=== PATIENT | female | born 1965 | race Caucasian/White ===

== ENCOUNTER → 2020-10-21 | Outpatient (CLI) | payer OTHER ==
--- NOTE | 2020-10-22 09:03 | MM ---
Reason for exam: screening (asymptomatic). Last mammogram was performed 4 years and 11 months ago. Physical Findings: A clinical breast exam by your physician is recommended on an annual basis and results should be correlated with mammographic findings. MG 3D Screening Mammo W/Cad Bilateral CC and MLO view(s) were taken. Prior study comparison: December 01, 2015, bilateral MG screening mammo w CAD. January 01, 2013, bilateral digital screening mammo w/CAD. The breast tissue is heterogeneously dense. This may lower the sensitivity of mammography. There is no discrete abnormality. ASSESSMENT: Negative, BI-RAD 1 RECOMMENDATION: Routine screening mammogram of both breasts in 1 year.
== END | disposition home or self-care (01) ==
LOC: LABWHC1 10:00
PROVIDERS: ATTEND Family Medicine
DX: Z12.31 Encounter for screening mammogram for malignant neoplasm of breast (principal)
CPT/HCPCS: 77063; 77067

== ENCOUNTER 2021-07-23 15:40 | Emergency (ER) | payer OTHER ==
[2021-07-23 15:48] VITALS: TEMP 97.9
[2021-07-23] MEDS ORDERED: ALBUTEROL HFA INHALER INHALATION STA (16:51)
--- NOTE | 2021-07-23 17:02 | ED ---
General Adult HPI - General Chief complaint: Upper Respiratory Infection Stated complaint: covid+/wants antibodies Time Seen by Provider: 07/23/21 16:27 Source: patient, RN notes reviewed, old records reviewed Mode of arrival: ambulatory Limitations: no limitations - History of Present Illness Initial comments: Patient is a 56-year-old female with past medical history remarkable for hypertension, diabetes who presents emergency Department known Covid positive based on testing at home. Symptoms of been present for approximately one week. Has not yet received monoclonal antibody therapy. Was fully vaccinated for Covid. States she was originally seen by her PCP, however presents today due to worsening cough and congestion. One to be reevaluated. Denies fevers. Denies nausea, vomiting, diarrhea. Nurse's productive cough which has been present since Covid diagnosis. Endorses fatigue. Has no other acute complaints at this time. - Related Data Home Medications Medication Instructions Recorded Confirmed Telmisartan/Hydrochlorothiazid 1 tab PO DAILY 02/02/15 07/23/21 [Micardis Hct 80-25 mg Tablet] glipiZIDE [Glucotrol] 5 mg PO DAILY 02/02/15 07/23/21 Cholecalciferol [Vitamin D3 (25 50 mcg PO DAILY 07/23/21 07/23/21 Mcg = 1000 Iu)] Empagliflozin [Jardiance] 10 mg PO DAILY 07/23/21 07/23/21 INSULIN ASPART (NovoLOG) [NovoLOG 2 - 10 unit SQ AC-SUPPER MDD 10 07/23/21 07/23/21 (formulary)] units Insulin Detemir (Levemir) [Levemir] 40 unit SQ HS 07/23/21 07/23/21 metFORMIN HCL ER [Glucophage XR] 500 mg PO W/SUPPER 07/23/21 07/23/21 Previous Rx's Medication Instructions Recorded Albuterol Inhaler [Ventolin Hfa 1 puff INHALATION RT-QID #8 gm 07/23/21 Inhaler] Allergies Allergy/AdvReac Type Severity Reaction Status Date / Time Penicillins Allergy Rash/Hives Verified 07/23/21 18:41 Review of Systems ROS Statement: Those systems with pertinent positive or pertinent negative responses have been documented in the HPI. Review of Systems: CONST: Denies fever EYES: Denies blurry vision ENT: Endorses nasal congestion C/V: Denies Chest pain RESP: Denies shortness of breath GI: Denies abdominal pain : Denies dysuria SKIN: Denies rash. MSK: Denies joint pain. NEURO: Denies headache ROS Other: All systems not noted in ROS Statement are negative. Past Medical History Past Medical History: Diabetes Mellitus, Hyperlipidemia, Hypertension History of Any Multi-Drug Resistant Organisms: None Reported Past Surgical History: Tubal Ligation Past Psychological History: No Psychological Hx Reported Smoking Status: Never smoker Past Alcohol Use History: None Reported Past Drug Use History: None Reported General Exam - General Exam Comments Initial Comments: General: Appears in no acute distress. HEAD: Normal with no signs of head trauma. EYES: PERRLA, EOMI, conjunctiva normal, no discharge. ENT: Hearing grossly intact, normal oropharynx. RESPIRATORY: Clear breath sounds bilaterally. No wheezes, rales, or rhonchi. Not hypoxic, no increased work of breathing. C/V: Regular rate and rhythm. S1 and S2 auscultated, no edema, peripheral pulses 2+ and intact throughout ABD: Abd is soft, nontender, nondistended EXT: Normal range of motion, no obvious deformity SKIN: No rashes or lesions observed on exposed skin. NEURO: Alert and oriented 4. Limitations: no limitations Course Vital Signs 07/23/21 15:45 Temperature 97.9 F Pulse Rate 101 H Respiratory 20 Rate Blood Pressure 177/109 O2 Sat by Pulse 94 L Oximetry Medical Decision Making - Medical Decision Making Based on the patient's presentation and physical exam, I believe she is Covid 19 positive. She is not yet received monoclonal antibody therapy and she does meet criteria. She did consent therapy. We will obtain a chest x-ray. She'll be given an albuterol inhaler. I do not believe that she'll present laboratory studies or imaging at this time. Patient is not hypoxic on room air, his saturations while I'm talking to her range from 95% to 98%. She is no increased work of breathing. She was in agreement this plan. She was prescribed steroids by her outpatient PCP. We did a repeat Covid testing here as we do not have a documented positive. Covid testing is positive. Chest x-ray reveals no acute cardiopulmonary process. I discussed the findings with the patient. She consented to monoclonal antibody therapy. We discussed quarantine. She is otherwise taking steroids as well as inhaler at home. Patient tolerated therapy well. She'll be discharged home at this time. I will provide the patient with a prescription for albuterol. I instructed the patient to follow up with their PCP in the next 3 days. I explained that the patient should return to the emergency department if they experience any worsening symptoms. Strict return precautions were discussed with the patient. The patient expressed understanding of these instructions. I answered all questions that the patient had. The patient was discharged home in fair condition with their prescriptions and follow up information. - Lab Data Lab Results 07/23/21 Range/Units 16:58 Coronavirus (PCR) Detected A (Not Detectd) Disposition Clinical Impression: COVID-19 virus infection Disposition: HOME SELF-CARE Condition: Fair Instructions (If sedation given, give patient instructions): COVID-19 (Coronavirus Disease 2019) (ED) Prescriptions: Albuterol Inhaler [Ventolin Hfa Inhaler] 1 puff INHALATION RT-QID #8 gm Is patient prescribed a controlled substance at d/c from ED?: No Referrals: Kenny Ruano MD [Primary Care Provider] - 1-2 days Time of Disposition: 18:20
--- NOTE | 2021-07-23 17:59 | XR ---
EXAMINATION TYPE: XR chest 1V portable DATE OF EXAM: 07/23/2021 5:10 PM COMPARISON:Chest radiographs from 04/29/2014 TECHNIQUE: XR chest 1V portable Frontal view of the chest. CLINICAL INDICATION:Female, 56 years old with history of cough; FINDINGS: Lungs/Pleura: There is no evidence of pleural effusion, focal consolidation, or pneumothorax. Pulmonary vascularity: Unremarkable. Heart/mediastinum: Cardiomediastinal silhouette is unremarkable. Musculoskeletal: No acute osseous pathology. IMPRESSION: No acute cardiopulmonary disease/process.
[2021-07-23] MEDS ORDERED: BEBTELOVIMAB (EUA) 175 MG/2 ML VIAL IV ONE (18:15)
[2021-07-23 20:00] VITALS: BP 131/89; PULSE 91; RESP 18
== END 2021-07-23 19:40 | disposition home or self-care (01) ==
LOC: EC 15:40
DX: U07.1 COVID-19 (principal); E11.9 Type 2 diabetes mellitus without complications; I10 Essential (primary) hypertension; Z88.0 Allergy status to penicillin
CPT/HCPCS: 94640; 87635; 71045; 99284; Q0222

== ENCOUNTER → 2021-10-22 | Outpatient (CLI) | payer OTHER ==
--- NOTE | 2021-10-23 08:11 | MM ---
Reason for Exam: Screening (asymptomatic). Last screening mammogram was performed 12 month(s) ago. Patient History: Menarche at age 13. First Full-Term at age 21. Postmenopausal. Patient has history of breast feeding. Risk Values: Juliana 5 year model risk: 0.9%. NCI Lifetime model risk: 6.7%. Prior Study Comparison: 11/18/2011 Bilateral Screening Mammogram, [facility]. 01/01/2013 Bilateral Screening Mammogram, [facility]. 12/01/2015 Bilateral Screening Mammogram, [facility]. 10/21/2020 Bilateral Screening Mammogram, [facility]. Tissue Density: There are scattered fibroglandular densities. Findings: Analyzed By CAD. Stable well-defined small round mass towards the right axilla presumed benign lymph node as there are additional benign-appearing bilateral axillary lymph nodes are redemonstrated. There is no suspicious group of microcalcifications or new suspicious mass in either breast. Overall Assessment: Benign, BI-RAD 2 Management: Screening Mammogram of both breasts in 1 year. A clinical breast exam by your physician is recommended on an annual basis and results should be correlated with mammographic findings. Electronically signed and approved by: Eduardo Man M.D.
== END | disposition home or self-care (01) ==
LOC: RADMAMWWP 08:09
PROVIDERS: ATTEND Family Medicine
DX: Z12.31 Encounter for screening mammogram for malignant neoplasm of breast (principal)
CPT/HCPCS: 77067

== ENCOUNTER → 2022-04-07 | Outpatient (CLI) | payer OTHER ==
--- NOTE | 2022-04-07 11:00 | XR ---
EXAMINATION TYPE: XR shoulder complete RT DATE OF EXAM: 04/07/2022 8:41 AM INDICATION: Patient age:Female; 57 years old; Reason for study: PAIN; COMPARISON: None TECHNIQUE: The right shoulder was examined in AP, internally rotated and scapular Y projections. . FINDINGS: No evidence of acute osseous pathology, joint dislocation, or soft tissue swelling. The remaining por tions of the visualized chest are unremarkable. Mild osteophyte formation of the acromion and distal clavicle. IMPRESSION: 1. No acute osseous pathology. 2. Mild right AC joint osteoarthrosis.
== END | disposition home or self-care (01) ==
LOC: RADXRMAIN 08:24
PROVIDERS: ATTEND Family Medicine
DX: M19.011 Primary osteoarthritis, right shoulder (principal)

== ENCOUNTER → 2022-05-07 | Outpatient (CLI) | payer OTHER ==
[2022-05-07 16:08] LABS: ALT 22 U/L (8-44); AST 18 U/L (13-35); Albumin 4.1 g/dL (3.8-4.9); Albumin/Globulin Ratio 1.19 (1.60-3.17); Alkaline Phosphatase 88 U/L (41-126); Blood Urea Nitrogen 39.3 mg/dL (9.0-27.0); Calcium 9.8 mg/dL (8.7-10.3); Carbon Dioxide 27.4 mmol/L (20.0-27.5); Chloride 103 mmol/L (96-109); Globulin 3.4 g/dL (1.6-3.3); Glucose 126 mg/dL (70-110); LDL Cholesterol,Calculated 105.8 mg/dL (0.0-131.0); Non-African American GFR(CKD) 45.7 (60.0-200.0); Sodium 143 mmol/L (135-145); Total Protein 7.6 g/dL (6.2-8.2)
[2022-05-07 19:57] LABS: Urine Creatinine 70.1 mg/dL (28.0-217.0)
== END | disposition home or self-care (01) ==
LOC: LABWHC1 09:15
PROVIDERS: ATTEND Internal Medicine Endocrinology, Diabetes & Metabolism
DX: E11.65 Type 2 diabetes mellitus with hyperglycemia (principal)
CPT/HCPCS: 36415; 80053; 80061; 82043; 82570; 83036; 84443

== ENCOUNTER → 2022-05-07 | Outpatient (CLI) | payer OTHER ==
--- NOTE | 2022-05-09 15:02 | MR ---
EXAMINATION TYPE: MR shoulder RT wo/w con DATE OF EXAM: 05/07/2022 COMPARISON: Right shoulder x-ray April 07, 2022 HISTORY: Rt shoulder pain when raising arm over head x4 months TECHNIQUE: Multiplanar, multisequence images of the right shoulder is performed without and with 9ml mL intravenous Gadavist gadolinium contrast. FINDINGS: Rotator Cuff: Focal tearing of the supraspinatus tendon and articular surface with a few remnant fibe rs intact. Surrounding fluid is seen. Infraspinatus tendon intact. Rotator cuff muscle bulk preserved . Acromioclavicular Joint: Moderate narrowing and capsular hypertrophy. Loss of underlying fat plane on sagittal image 15 Glenohumeral Joint: Moderate sized joint effusion. No significant spurring. Labrum: The labrum appears grossly intact given limitation of non-arthrogram study. Biceps Tendon: The long head of biceps is in normal location within bicipital groove. Bone marrow signal: Heterogeneity is present. No suspicious postcontrast enhancement is seen. Other: No additional significant abnormality is appreciated. IMPRESSION: 1. Tendinosis and significant partial distal tearing of the distal supraspinatus tendon. 2. Moderate degenerative changes in the shoulder as detailed above. Moderate size effusion noted.
== END | disposition home or self-care (01) ==
LOC: RADMRIMAIN 21:15
PROVIDERS: ATTEND Family Medicine
DX: M19.011 Primary osteoarthritis, right shoulder (principal); M75.111 Incomplete rotator cuff tear or rupture of right shoulder, not specified as traumatic; M67.813 Other specified disorders of tendon, right shoulder; M25.411 Effusion, right shoulder
CPT/HCPCS: 73223; A9585

== ENCOUNTER → 2022-08-21 | Outpatient (CLI) | payer OTHER ==
[2022-08-22 07:42] LABS: ALT 19 U/L (8-44); AST 17 U/L (13-35); Albumin 4.3 g/dL (3.8-4.9); Albumin/Globulin Ratio 1.17 (1.60-3.17); Alkaline Phosphatase 81 U/L (41-126); BUN/Creat Ratio 27.48 Ratio (12.00-20.00); Calcium 10.1 mg/dL (8.7-10.3); Carbon Dioxide 24.6 mmol/L (20.0-27.5); Chloride 102 mmol/L (96-109); Chol/HDL Ratio 5.45 Ratio; Globulin 3.7 g/dL (1.6-3.3); Glucose 98 mg/dL (70-110); LDL Cholesterol,Calculated 117.3 mg/dL (0.0-131.0); Non-African American GFR(CKD) 45.7 (60.0-200.0); Sodium 141 mmol/L (135-145); Total Protein 7.9 g/dL (6.2-8.2)
[2022-08-22 09:51] LABS: Urine Creatinine 95.6 mg/dL (28.0-217.0)
== END | disposition home or self-care (01) ==
LOC: LABWHC1 09:09
PROVIDERS: ATTEND Internal Medicine Endocrinology, Diabetes & Metabolism
DX: E11.65 Type 2 diabetes mellitus with hyperglycemia (principal)
CPT/HCPCS: 36415; 80053; 80061; 82043; 82570; 83036; 84443

== ENCOUNTER → 2022-11-29 | Outpatient (CLI) | payer OTHER ==
--- NOTE | 2022-11-30 08:49 | MM ---
Reason for Exam: Screening (asymptomatic). Last mammogram was performed 1 year(s) and 1 month(s) ago. Patient History: Menarche at age 13. First Full-Term at age 21. Postmenopausal. Patient has history of breast feeding. Risk Values: Juliana 5 year model risk: 0.9%. NCI Lifetime model risk: 6.6%. Prior Study Comparison: 12/01/2015 Bilateral Screening Mammogram, [facility]. 10/21/2020 Bilateral Screening Mammogram, [facility]. 10/22/2021 Bilateral MG screening mammo w CAD, [facility]. Tissue Density: There are scattered fibroglandular densities. Findings: Analyzed By CAD. There is no suspicious group of microcalcifications or new suspicious mass in either breast. Stable small round mass in the right axilla which is presumed benign lymph node. Additional benign-appearing bilateral axillary lymph nodes redemonstrated. Overall Assessment: Benign, BI-RAD 2 Management: Screening Mammogram of both breasts in 1 year. A clinical breast exam by your physician is recommended on an annual basis and results should be correlated with mammographic findings. Note on Juliana scores and lifetime risk: 1. A Juliana score greater than 3% is considered moderate risk. If this is the case, consider specialist referral to assess eligibility for a risk reducing agent. If overall lifetime risk for the development of breast cancer is 20% or higher, the patient may qualify for future screening with alternating mammogram and breast MRI. Electronically signed and approved by: Umair Park D.O.
== END | disposition home or self-care (01) ==
LOC: RADMAMWWP 16:47
PROVIDERS: ATTEND Family Medicine
DX: Z12.31 Encounter for screening mammogram for malignant neoplasm of breast (principal); Z78.0 Asymptomatic menopausal state
CPT/HCPCS: 77063; 77067

== ENCOUNTER 2022-12-24 05:37 | Day surgery (SDC) | payer OTHER ==
[2022-12-22 13:10] VITALS: BMI 39.9
--- NOTE | 2022-12-23 07:59 | P.HPOR ---
History of Present Illness H&P Date: 12/23/22 Chief Complaint: Right shoulder pain The patient is a 57-year-old [id number] female presents with right shoulder pain for the last 9 months. She is having pain with overhead activity and at night. She notes stiffness. She's tried therapy along with an injection and medications. She is having daily pain that limits her. Review of Systems As per HPI Past Medical History Past Medical History: Diabetes Mellitus, Hyperlipidemia, Hypertension Additional Past Medical History / Comment(s): fatty liver , dr monitoring kidney function, pain right shoulder History of Any Multi-Drug Resistant Organisms: None Reported Past Surgical History: Tubal Ligation Additional Past Surgical History / Comment(s): left shoulder tears repaired (2017) Past Anesthesia/Blood Transfusion Reactions: No Reported Reaction Past Psychological History: No Psychological Hx Reported Smoking Status: Never smoker Past Alcohol Use History: None Reported Past Drug Use History: None Reported - Past Family History Mother Family Medical History: No Reported History Medications and Allergies Home Medications Medication Instructions Recorded Confirmed Type Telmisartan/Hydrochlorothiazid 1 tab PO DAILY 02/02/15 12/22/22 History [Micardis Hct 80-25 mg Tablet] metFORMIN HCL ER [Glucophage XR] 500 mg PO W/SUPPER 07/23/21 12/22/22 History Acetaminophen [Tylenol Extra 1,000 mg PO DIRECTED PRN 12/22/22 12/22/22 History Strength] Cholecalciferol [Vitamin D3 (125 125 mcg PO DAILY 12/22/22 12/22/22 History Mcg = 5000 Iu)] Empagliflozin [Jardiance] 25 mg PO DAILY 12/22/22 12/22/22 History Finerenone [Kerendia] 10 mg PO DAILY 12/22/22 12/22/22 History Glimepiride [Amaryl] 4 mg PO AC-BRKFST 12/22/22 12/22/22 History Ibuprofen [Motrin] 600 mg PO ONCE PRN 12/22/22 12/22/22 History Magnesium 250 mg PO DAILY 12/22/22 12/22/22 History Pioglitazone [Actos] 30 mg PO DAILY 12/22/22 12/22/22 History Rosuvastatin Calcium 5 mg PO DAILY 12/22/22 12/22/22 History Semaglutide [Ozempic] 2 mg SQ WEEKLY 12/22/22 12/22/22 History Allergies Allergy/AdvReac Type Severity Reaction Status Date / Time Penicillins Allergy Rash/Hives, Verified 12/22/22 12:41 all over her body (teenager) Physical Examination - Shoulder right Tenderness with palpation: anterior, bicipital groove Pain: with abduction, with forward flexion ROM: forward flexion: 120 degrees (Active and passive) ROM: external rotation: 50 degrees Crepitus with motion: Yes Strength: abduction: 5/5 Strength: external rotation: 5/5 Tests: internal impingement tests: positive, external impingment tests: positive Results The patient is a well-developed well-nourished female approximately 5 foot 2, 220 pounds of endomorphic habitus. HEENT exam is nonfocal neck supple. On examination the right shoulder, she is tender but anterior subacromial space. Moderate crepitus is noted. She has diminished active range of motion symmetric to passive motion. Bravo, Neer sign, and speed tests are positive. Her distal neurovascular exam appears intact in the right upper extremity. - Diagnostic results Shoulder MRI: image reviewed (Right shoulder MRI is reviewed and shows a small anterior supraspinatus tear along with some degenerative changes involving the glenohumeral joint.) Assessment and Plan Assessment: Right shoulder impingement/rotator cuff tear Right shoulder adhesive capsulitis Plan: I talked to the patient length regarding her condition along with treatment options. At this point she is quite symptomatic despite extensive conservative measures. After thorough discussion, she opted to proceed with surgery. We'll proceed with a right shoulder arthroscopic evaluation with manipulation under anesthesia, subacromial decompression, rotator cuff debridement versus repair. Risks and benefits are discussed at length in layman's terms. We will likely perform that as an outpatient procedure.
[2022-12-24] MEDS ORDERED: LACTATED RINGERS 1,000 ML IV SCH (05:53)
[2022-12-24] MEDS ORDERED: ONDANSETRON 4 MG/2 ML VIAL IVP ONE (05:53)
[2022-12-24] MEDS ORDERED: LIDOCAINE 1% (10MG/ML) FOR IV START INTRADERMA PRN (05:53)
[2022-12-24] MEDS ORDERED: DEXAMETHASONE SOD PHOSPHATE 4 MG/ML 1 ML VIAL IV ONE (05:53)
[2022-12-24 06:44] LABS: Glucose,Whole Blood 143 mg/dL (70-110)
[2022-12-24] MEDS ORDERED: MIDAZOLAM 2 MG/2 ML VIAL IVP ONE (06:54)
[2022-12-24] MEDS ORDERED: HYDROmorphone 0.5 MG/0.5 ML SYRINGE IVP PRN (07:00)
[2022-12-24] MEDS ORDERED: MIDAZOLAM 2 MG/2 ML VIAL IV PRN (07:00)
[2022-12-24] MEDS ORDERED: DEXAMETHASONE SOD PHOSPHATE 4 MG/ML 1 ML VIAL ONE (07:30)
[2022-12-24] MEDS ORDERED: fentaNYL (PF) 50 MCG/ML 2 ML AMP ONE (07:30)
[2022-12-24] MEDS ORDERED: ROPIVACAINE 5 MG/ML 30 ML VIAL ONE (07:30)
[2022-12-24] MEDS ORDERED: GLYCOPYRROLATE 0.2 MG/ML 2 ML VIAL ONE (07:30)
[2022-12-24] MEDS ORDERED: ROCURONIUM 10 MG/ML (5 ML VIAL) IV ONE (07:30)
[2022-12-24] MEDS ORDERED: PROPOFOL 10 MG/ML 20 ML VIAL IV ONE (07:30)
[2022-12-24] MEDS ORDERED: EPINEPHrine (PF) 1 ML in SODIUM CHLORIDE 0.9% IRRIGATIO 3,000 ML IRRIGATION ONE ×8 (07:30)
[2022-12-24] MEDS ORDERED: PHENYLEPHRINE-0.9% NACL SYG 1,000 MCG/10 ML SYRINGE ONE (07:30)
[2022-12-24] MEDS ORDERED: MIDAZOLAM 2 MG/2 ML VIAL ONE (07:30)
[2022-12-24] MEDS ORDERED: LIDOCAINE 2% INJ 20 MG/ML (2 ML VIAL) ONE (07:30)
[2022-12-24] MEDS ORDERED: SUCCINYLCHOLINE CHLORIDE 200 MG/10 ML VIAL IV ONE (07:30)
[2022-12-24] MEDS ORDERED: NEOSTIGMINE 1 MG/ML 10 ML VIAL ONE (07:30)
--- NOTE | 2022-12-24 09:06 | P.OP ---
Date of Procedure: 12/24/22 Preoperative Diagnosis: Right shoulder impingement/rotator cuff tear Right shoulder adhesive capsulitis/synovitis Postoperative Diagnosis: Same Procedure(s) Performed: Right shoulder arthroscopic subacromial decompression/manipulation under anesthesia/synovectomy/rotator cuff repair Implants: Arthrex 4.75 mm swivel lock anchor 2, 5.5 mm swivel lock anchor 2 Anesthesia: KENNAishan Surgeon: Tray Ortiz Deadener #1: Michael Cueva Estimated Blood Loss (ml): 10 Pathology: none sent Condition: stable Disposition: PACU Indications for Procedure: The patient is a 57-year-old female who presents with persistent/progressive right shoulder pain and stiffness for the past 9 months despite conservative measures. A discussion of the risks and benefits of operative intervention versus continued conservative measures was made with the patient. She opted to proceed with surgery. Operative risks to include infection, neurovascular injury, development of blood clots, possible recurrence of stiffness, possible need for subsequent procedures was discussed. Informed consent was obtained. Operative Findings: As below Description of Procedure: The patient was brought to the operating room, and after induction of general anesthesia was placed in a beachchair position. A preoperative interscalene block was placed for postoperative analgesia. I examined the right shoulder. There was significant block to passive motion. Gentle manipulation was then performed first with her arm at her side obtaining full external rotation. Moderate adhesions were encountered. I then obtained full forward elevation. Again moderate adhesions were encountered. The right upper extremity was prepped and draped in normal fashion. The bony outlines the acromion, distal clavicle, and coracoid process were outlined with a skin marker. The glenohumeral joint was inflated with 50 mL of saline utilizing a spinal needle from posterior approach. A posterior portal was made through a 5 mm skin incision 1 cm medial and inferior to the posterior lateral border time. A blunt trocar was used to easily into the joint. Diagnostic arthroscopy was performed. An anterior portal was made just lateral to the coracoid process entering the joint above the subscapularis tendon. The subscapularis tendon appeared to be intact. Anterior labrum was intact. The inferior recess was inspected. The posterior labrum was intact. The biceps tendon appear to be intact as well as the anchor. Significant synovitis involving the rotator interval was noted and was debrided with a motorized shaver. On inspection the rotator cuff, a full- thickness tear involving the anterior supraspinatus was noted. The arthroscope was placed into the subacromial space. A lateral portal was made 2 centimeters inferior to the anterior lateral border of the acromion. The rotator cuff was easily mobilized back to the greater tuberosity. The soft tissue on the undersurface of the acromion was debrided with a motorized shaver and electrocautery clearly defining the anterior medial and lateral borders as well as the distal clavicle. An anterior inferior acromioplasty was performed with a motorized fer starting anterolateral, then extending this posteriorly, then extending this medially. I converted to a flat acromion and this was verified in the posterior and lateral viewing portals. The greater tuberosity was lightly decorticating with a shaver down to a bleeding bony surface. An accessory superior lateral portal was made just off the lateral edge of the acromion for anchor placement. 2 anchors were then placed just off the articular surface with the appropriate starting awl. 4.75 mm anchors preloaded with #2 fiber tape were placed. Good purchase was obtained. These fiber tapes were then passed the rotator cuff with a scorpion suture passer. A lateral row was created crisscrossing these tapes. 5.5 mm swivel lock anchors x2 were placed laterally. Good purchase was obtained. Final arthroscopic view showed adequate compression at the footprint. The arthroscope was then removed. The portals were closed with simple 3-0 nylon sutures. A sterile dressing was applied in addition to a sling. The patient was then awoken from general anesthesia and transferred to recovery room in good condition. Blood loss was estimated at 10 mL. No complications were incurred. Sponge and needle counts were correct in the case. Michael MCKEON assisted and the major components of the case to include arm positioning, anchor placement, and rotator cuff repair.
[2022-12-24 09:13] LABS: Glucose,Whole Blood 144 mg/dL (70-110)
[2022-12-24 09:16] VITALS: TEMP 96.8
--- NOTE | 2022-12-24 13:29 | P.ANPRN ---
Procedure Note - Anesthesia - Nerve Block Performed Right Interscalene Single Time Out Performed: Yes Date of Procedure: 12/24/22 Procedure Start Time: 06:53 Procedure Stop Time: 06:57 Location of Patient: PreOp Indication: Acute Post-Operative Pain, Requested by Surgeon Sedation Type: Sedate with meaningful contact maintained Preparation: Sterile Prep Position: Supine Needle Types: Pajunk Needle Gauge: 21 Ultrasound used to visualize needle placement: Yes Ultrasound used to observe medication spread: Yes Blood Aspirated: No Pain Paresthesia on Injection Noted: No Resistance on Injection: Normal Image Stored and Saved: Yes Events: Uneventful and Well Tolerated (Ropivacaine 0.5% 20 mL plus dexamethasone 4 mg)
[2022-12-24 15:26] VITALS: BP 110/67; PULSE 81; RESP 16
== END 2022-12-24 10:59 | disposition home or self-care (01) ==
LOC: OR 05:37
PROVIDERS: ATTEND Orthopaedic Surgery
DX: M75.101 Unspecified rotator cuff tear or rupture of right shoulder, not specified as traumatic (principal); M25.811 Other specified joint disorders, right shoulder; M75.01 Adhesive capsulitis of right shoulder; I10 Essential (primary) hypertension; E78.5 Hyperlipidemia, unspecified; E11.9 Type 2 diabetes mellitus without complications; Z79.84 Long term (current) use of oral hypoglycemic drugs; Z88.0 Allergy status to penicillin; Z79.899 Other long term (current) drug therapy
CPT/HCPCS: 29827; 29826; 64415; C1713 ×2; C1894; J2250; J0330; J1100; J2710; J0690; J2405; J0171; J3010; J2795; J2704; J2001; J2371

== ENCOUNTER → 2023-01-31 | Outpatient (CLI) | payer OTHER ==
--- NOTE | 2023-01-31 09:14 | XR ---
EXAMINATION TYPE: XR knee complete RT DATE OF EXAM: 01/31/2023 9:06 AM INDICATION: Patient age:Female; 57 years old; Reason for study: R52 pain; PHH. COMPARISON: None. TECHNIQUE: The Right knee(s) was examined in Frontal, lateral and oblique projections. FINDINGS: No evidence of any acute osseous pathology, soft tissue swelling, or joint effusion is no kamini. No significant joint space narrowing. Supra and infrapatellar spurring noted. Prominent tibial t uberosity. IMPRESSION: No acute osseous pathology.
== END | disposition home or self-care (01) ==
LOC: RADXRMAIN 08:46
PROVIDERS: ATTEND Family Medicine
DX: M25.561 Pain in right knee (principal)

== ENCOUNTER → 2023-02-22 | Outpatient (CLI) | payer OTHER ==
[2023-02-22 15:47] LABS: ALT 21 U/L (8-44); AST 16 U/L (13-35); Albumin 4.1 g/dL (3.8-4.9); Albumin/Globulin Ratio 1.17 Ratio (1.60-3.17); Alkaline Phosphatase 75 U/L (41-126); BUN/Creat Ratio 34.31 Ratio (12.00-20.00); Blood Urea Nitrogen 44.6 mg/dL (9.0-27.0); Calcium 9.9 mg/dL (8.7-10.3); Carbon Dioxide 21.8 mmol/L (21.6-31.8); Chloride 109 mmol/L (96-109); Chol/HDL Ratio 5.16 Ratio; Globulin 3.5 g/dL (1.6-3.3); Glucose 145 mg/dL (70-110); LDL Cholesterol,Calculated 133.7 mg/dL (0.0-131.0); Potassium 4.4 mmol/L (3.5-5.5); Sodium 145 mmol/L (135-145); Total Bilirubin 0.2 mg/dL (0.3-1.2); Total Protein 7.6 g/dL (6.2-8.2)
[2023-02-22 21:07] LABS: Urine Creatinine 75.7 mg/dL (28.0-217.0)
== END | disposition home or self-care (01) ==
LOC: LABWHC1 08:53
PROVIDERS: ATTEND Internal Medicine Endocrinology, Diabetes & Metabolism
DX: E11.65 Type 2 diabetes mellitus with hyperglycemia (principal)
CPT/HCPCS: 36415; 80053; 80061; 82043; 82570; 83036; 84443

== ENCOUNTER → 2023-04-29 | Outpatient (CLI) | payer OTHER ==
--- NOTE | 2023-05-03 11:58 | MR ---
EXAMINATION TYPE: MR knee RT wo con DATE OF EXAM: 04/29/2023 COMPARISON: HISTORY: Right knee pain TECHNIQUE: Multiplanar, multisequence imaging of the right knee is performed without IV contrast. FINDINGS: MEDIAL MENISCUS: Anterior and posterior horns are intact without tear. LATERAL MENISCUS: Macerated tear anterior horn and body of the lateral meniscus with bone on bone not ed. CRUCIATE LIGAMENTS: The anterior and posterior cruciate ligaments are intact and unremarkable. COLLATERAL LIGAMENTS: The medial collateral ligament and lateral collateral ligament complex are inta ct and unremarkable. EXTENSOR MECHANISM: Visualized quadriceps and patellar tendons are intact. EFFUSION: No significant suprapatellar joint effusion. POPLITEAL CYST: No popliteal/vega cyst. TRICOMPARTMENT SPACES: Severe narrowing tibial femoral joint space laterally and to a lesser extent m edially. CARTILAGE: Cartilaginous thinning of the lateral and medial compartments. BONE MARROW SIGNAL: Focal bone contusion lateral tibial plateau. OTHER: No additional significant abnormality is appreciated. IMPRESSION: 1. Tears of the medial and lateral menisci as discussed. 2. Cartilaginous thinning with bone contusion lateral tibial plateau.
== END | disposition home or self-care (01) ==
LOC: RADMRIMAIN 17:34
PROVIDERS: ATTEND Orthopaedic Surgery
DX: S80.11XA Contusion of right lower leg, initial encounter (principal); S83.241A Other tear of medial meniscus, current injury, right knee, initial encounter; S83.281A Other tear of lateral meniscus, current injury, right knee, initial encounter; M25.561 Pain in right knee

== ENCOUNTER → 2023-08-16 | Outpatient (CLI) | payer OTHER ==
--- NOTE | 2023-08-17 19:46 | CA ---
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 Rita Dueñas RDCS Procedure CPT: Indications: R60.0 LOCALIZED EDEMA Cardiac Hx: Technical Quality: Fair Contrast 1: Total Dose (mL): Contrast 2: Total Dose (mL): MEASUREMENTS (Male / Female) Normal Values 2D ECHO LV Diastolic Diameter PLAX 4.2 cm 4.2 - 5.9 / 3.9 - 5.3 cm LV Systolic Diameter PLAX 1.9 cm IVS Diastolic Thickness 1.5 cm 0.6 - 1.0 / 0.6 - 0.9 cm LVPW Diastolic Thickness 1.2 cm 0.6 - 1.0 / 0.6 - 0.9 cm LV Relative Wall Thickness 0.6 RV Internal Dim ED PLAX 2.9 cm M-MODE Aortic Root Diameter MM 2.5 cm LA Systolic Diameter MM 1.3 cm LA Ao Ratio MM 0.5 AV Cusp Separation MM 3.9 cm DOPPLER AV Peak Velocity 156.0 cm/s AV Peak Gradient 9.7 mmHg AV Mean Velocity 118.1 cm/s AV Mean Gradient 6.1 mmHg AV Velocity Time Integral 28.9 cm LVOT Peak Velocity 121.0 cm/s LVOT Peak Gradient 5.9 mmHg LVOT Velocity Time Integral 23.9 cm Mitral E Point Velocity 118.7 cm/s Mitral A Point Velocity 134.4 cm/s Mitral E to A Ratio 0.9 MV Deceleration Time 106.7 ms MV E' Velocity 7.5 cm/s Mitral E to MV E' Ratio 15.8 TR Peak Velocity 178.4 cm/s TR Peak Gradient 12.7 mmHg Right Ventricular Systolic Press 22.7 mmHg FINDINGS Left Ventricle Left ventricular ejection fraction is estimated at 55-60 %. Moderately increased septal wall thickness. Mildly increased posterior wall thickness. No obvious regional wall motion abnormalities. Left ventricular cavity size normal. Right Ventricle Normal right ventricular size and function. Right ventricular systolic pressure within normal limits. Right Atrium Normal right atrial size. Left Atrium Normal left atrial size. Mitral Valve Structurally normal mitral valve. No mitral stenosis, regurgitation or prolapse. Aortic Valve Trileaflet aortic valve. No aortic valve stenosis or regurgitation. Tricuspid Valve Structurally normal tricuspid valve. No tricuspid stenosis. Trace tricuspid regurgitation. Pulmonic Valve Pulmonic valve not well visualized. No pulmonic stenosis. No pulmonic regurgitation. Pericardium No pericardial effusion. Aorta Normal size aortic root and proximal ascending aorta. CONCLUSIONS Technically difficult study for interpretation Normal LV systolic function Previewed by: Dr. Andre Miranda MD (Electronically Signed) Final Date: 17 Aug 2023 19:45
== END | disposition home or self-care (01) ==
LOC: RADECHMAIN 17:48
PROVIDERS: ATTEND Family Medicine
DX: R60.0 Localized edema (principal)
CPT/HCPCS: 93306

== ENCOUNTER → 2024-03-14 | Outpatient (CLI) | payer OTHER ==
--- NOTE | 2024-03-14 14:23 | US ---
EXAMINATION TYPE: US kidneys/renal and bladder DATE OF EXAM: 03/14/2024 COMPARISON: NONE CLINICAL INDICATION: Female, 59 years old with history of R94.4 ABNORMAL RESULTS OF KIDNEY FUNCTION S TUDIES; abn labs, no symptoms per patient TECHNIQUE: Grayscale imaging of the bilateral kidneys and urinary bladder: FINDINGS: EXAM MEASUREMENTS: Right Kidney: 10.6 x 4.6 x 5.9 cm Left Kidney: 11.8 x 5.0 x 6.1 cm Right Kidney: No hydronephrosis or masses seen Left Kidney: No hydronephrosis or masses seen Bladder: wnl There is no evidence for hydronephrosis at this point in time. No nephrolithiasis is seen. No delphine s are identified. The urinary bladder is anechoic. IMPRESSION: No evidence for obstructive uropathy or renal calculus. [facility], , 03/14/2024 2:21 PM
== END | disposition home or self-care (01) ==
LOC: RADUSWWP 13:14
PROVIDERS: ATTEND Family Medicine
DX: R94.4 Abnormal results of kidney function studies (principal)
CPT/HCPCS: 76770

== ENCOUNTER → 2024-03-14 | Outpatient (CLI) | payer OTHER ==
--- NOTE | 2024-03-15 19:03 | MM ---
Reason for Exam: Screening (asymptomatic). Last mammogram was performed 1 year(s) and 4 month(s) ago. Patient History: Menarche at age 13. First Full-Term at age 21. Postmenopausal. Patient has history of breast feeding. Risk Values: Juliana 5 year model risk: 1.0%. NCI Lifetime model risk: 6.3%. Prior Study Comparison: 10/21/2020 Bilateral Screening Mammogram, [facility]. 10/22/2021 Bilateral MG screening mammo w CAD, [facility]. 11/29/2022 Bilateral MG 3D screening mammo w/cad, [facility]. Tissue Density: There are scattered areas of fibroglandular density. Findings: Analyzed By CAD. Unchanged low axillary tail lymph node on the right. There is no suspicious group of microcalcifications or new suspicious mass in either breast. Overall Assessment: Negative, BI-RAD 1 Management: Screening Mammogram of both breasts in 1 year. Patient should continue monthly self-breast exams. A clinical breast exam by your physician is recommended on an annual basis. This exam should not preclude additional follow-up of suspicious palpable abnormalities. Note on Juliana scores and lifetime risk: 1. A Juliana score greater than 3% is considered moderate risk. If this is the case, consider specialist referral to assess eligibility for a risk reducing agent. 2. If overall lifetime risk for the development of breast cancer is 20% or higher, the patient may qualify for future screening with alternating mammogram and breast MRI. [facility], , 03/15/2024 7:00 PM. Electronically signed and approved by: Marisol Alfaro M.D. Radiologist
== END | disposition home or self-care (01) ==
LOC: RADMAMWWP 13:15
PROVIDERS: ATTEND Family Medicine
DX: Z12.31 Encounter for screening mammogram for malignant neoplasm of breast (principal); Z78.0 Asymptomatic menopausal state; R92.323 Mammographic fibroglandular density, bilateral breasts
CPT/HCPCS: 77063; 77067